=== PATIENT | female | born 1965 | race Caucasian/White ===

== ENCOUNTER 2018-01-20 08:01 | Emergency (ER) | payer BC ==
--- OUTSIDE RECORDS SUMMARY | 2018-01-20 08:06 | XMS REPORT ---
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 Active Onset: 09/19/2017 Localized, primary osteoarthritis of the Cathy Hall M.D. 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 ETOH Use Currently consumes alcohol <1 drink/week Smoking Patient has never smoked Daily Caffeine Consumes on average 2 cups of regular coffee per day Exercise Type/Frequency Exercises sporadically Allergies, Adverse Reactions, Alerts Date Description Reaction Status Severity Comments 06/29/2014 Penicillin active passed out 06/29/2014 Naprosyn active rash 06/29/2014 Morphine active nausea Medications Medication Date Status Form Strength Qnty SIG Indications Ordering Provider Celecoxib 01/16 Active Capsules 200mg 30cap 1 by mouth M16.11 Owen s every day NI Silveira Tramadol HCL 01/16 Active Tablets 50mg 28tab 1-2 tablets M16.11 Owen /2017 s every 12 NI Silveira hours as needed for pain. Baclofen 05/12 Active Tablets 10mg 30tab take 1/2 M54.5 Owen /2017 s tab every 8 NI Silveira hours as needed for muscle spasm Diazepam 02/20 Active Tablets 5mg 30tab 1 tablet Owen /2015 s once daily NI Silveira as needed Ibuprofen 05/02 Active Tablets 600mg 60tab take one J06.9 Owen s tablet by NI Silveira mouth three times a day as needed with food Cyclobenzaprine 11/02 Active Tablets 5mg 30tab take 03/11-1 Owen HCL /2014 s tablet NI Silveira daily as needed Motorized 09/07 Active 1unit Pride G11.4 Owen Scooter /2014 s Ivon 3 NI Silveira wheeled scooter or current equivalent Compression 09/01 Active Misc 15-20MMHG 2Pair To be worn R60.0 Owen Stockings /2014 while awake NI Silveira Wrist 08/17 Active Misc 1unit To be worn Owen Splint/Cock-Up/L /2014 s at night NI Silveira eft/Canvas/Mediu for carpal m tunnel B Complete Active Tablets once daily Unknown /0000 Calcium-Magnesiu Active Tablets One daily Unknown m-Zinc / Vitamin D-1000 Active Tablets 1000Unit one daily Unknown Maximum Strength /0000 Biotin Active Tablets 300mcg 1 tablet Unknown /0000 every other day Vitamin E-200 Active Capsules 200Unit 1 by mouth Unknown /0000 every day Mometasone 09/25 Hx Suspension 50mcg/Act 17uni spray 2 R09.81 Owen Furoate ts sprays into NI Silveira - each 09/03 nostril two times daily Ciprodex 09/25 Hx Suspension 0.3-0.1% 7.500 instill 4 H92.02 Owen /2016 ml drops into NI Silveira - affected 05/11 ear twice daily for 7 days Nitrofurantoin 02/20 Hx Capsules 100mg 14cap take one M54.5 Owen Macrocrystal s capsule Raoul, SYSTEM DEVELOPMENT MANAGER - twice daily 02/27 for 7 days. Ondansetron 05/02 Hx Tablets 4mg 20tab dissolve J06.9 Owen Dispers s one tablet Raoul, SYSTEM DEVELOPMENT MANAGER - orally every hours as needed for nausea. Tamiflu 05/02 Hx Capsules 75mg 10cap take one J06.9 Owen s capsule Raoul, SYSTEM DEVELOPMENT MANAGER - twice daily for 5 days. Vital Signs Date Vital Result Comment 01/16/2018 Height 63 inches 5'3" Weight 265.00 lb Heart Rate 90 /min BP Systolic 141 mmHg BP Diastolic 92 mmHg O2 % BldC Oximetry 98 % BMI (Body Mass Index) 46.9 kg/m2 09/19/2017 Height 63 inches 5'3" Weight 269.00 lb Heart Rate 100 /min BP Systolic 160 mmHg BP Diastolic 100 mmHg BMI (Body Mass Index) 47.6 kg/m2 09/12/2017 Height 63 inches 5'3" Weight 265.00 lb Heart Rate 72 /min BP Systolic 178 mmHg BP Diastolic 98 mmHg Respiratory Rate 12 /min Body Temperature 98.6 F Pain Level 7 BMI (Body Mass Index) 46.9 kg/m2 09/04/2017 Height 63 inches 5'3" Weight 265.75 lb Heart Rate 88 /min BP Systolic 180 mmHg BP Diastolic 120 mmHg Respiratory Rate 20 /min Body Temperature 98.4 F BMI (Body Mass Index) 47.1 kg/m2 05/12/2017 Weight 263.50 lb Heart Rate 93 /min BP Systolic Sitting 160 mmHg BP Diastolic Sitting 100 mmHg BP Systolic Recheck 142 mmHg BP Diastolic Recheck 88 mmHg O2 % BldC Oximetry 96 % 09/25/2016 Weight 264.25 lb Heart Rate 94 /min BP Systolic 138 mmHg BP Diastolic 86 mmHg Body Temperature 98.1 F O2 % BldC Oximetry 97 % 02/21/2016 Weight 267.00 lb with shoes Heart Rate 91 /min BP Systolic Sitting 144 mmHg BP Diastolic Sitting 88 mmHg Body Temperature 96.3 F O2 % BldC Oximetry 99 % 06/07/2015 BP Systolic Recheck 144 mmHg BP Diastolic Recheck 86 mmHg 06/07/2015 Weight 264.00 lb Heart Rate 79 /min BP Systolic Sitting 174 mmHg BP Diastolic Sitting 95 mmHg Body Temperature 96.8 F Pain Level 3 O2 % BldC Oximetry 98 % 05/02/2015 Weight 259.00 lb Heart Rate 100 /min BP Systolic Sitting 126 mmHg BP Diastolic Sitting 82 mmHg Respiratory Rate 14 /min Body Temperature 100.0 F O2 % BldC Oximetry 99 % 01/31/2015 Weight 271.00 lb Heart Rate 86 /min BP Systolic Sitting 126 mmHg BP Diastolic Sitting 84 mmHg Respiratory Rate 14 /min Body Temperature 98.6 F O2 % BldC Oximetry 87 % 10/31/2014 Weight 263.50 lb Heart Rate 91 /min BP Systolic Sitting 157 mmHg BP Diastolic Sitting 96 mmHg BP Systolic Recheck 152 mmHg BP Diastolic Recheck 88 mmHg 09/01/2014 Weight 262.00 lb Heart Rate 84 /min BP Systolic Sitting 146 mmHg BP Diastolic Sitting 89 mmHg Body Temperature 96.9 F 06/29/2014 Height 63 inches 5'3" Weight 265.00 lb Heart Rate 95 /min BP Systolic Sitting 127 mmHg BP Diastolic Sitting 84 mmHg O2 % BldC Oximetry 98 % BMI (Body Mass Index) 46.9 kg/m2 Results Test Date Test Result H/L Range Note Lipid Profile (Trig/Chol/HDL) 05/13/2017 Triglycerides 141 mg/dL 1 Cholesterol 205 mg/dL 2 HDL Cholesterol 48.0 mg/dL 3 LDL Cholesterol 129 mg/dL 4 Comp Metabolic Panel 05/13/2017 Sodium 136 mmol/L 133-145 Potassium 4.1 mmol/L 3.5-5.0 Chloride 101 mmol/L 101-111 Co2 Carbon Dioxide 29 mmol/L 22-32 Anion Gap 6 mmol/L 2-11 Glucose 97 mg/dL 70-100 Blood Urea Nitrogen 14 mg/dL 6-24 Creatinine 0.90 mg/dL 0.51-0.95 BUN/Creatinine Ratio 15.6 8-20 Calcium 9.6 mg/dL 8.6-10.3 Total Protein 7.0 g/dL 6.4-8.9 Albumin 4.2 g/dL 3.2-5.2 Globulin 2.8 g/dL 2-4 Albumin/Globulin Ratio 1.5 1-3 Total Bilirubin 0.60 mg/dL 0.2-1.0 Alkaline Phosphatase 100 U/L 34-104 Alt 16 U/L 7-52 Ast 13 U/L 13-39 Egfr Non- 66.3 >60 Egfr 85.2 >60 5 Laboratory test finding 05/13/2017 TSH (Thyroid Stim Horm) 2.67 mcIU/mL 0.34-5.60 6 Vitamin B12 279 pg/mL 180-914 7 CBC Auto Diff 05/13/2017 White Blood Count 5.3 10^3/uL 3.5-10.8 Red Blood Count 5.37 10^6/uL 4.0-5.4 Hemoglobin 14.4 g/dL 12.0-16.0 Hematocrit 43 % 35-47 Mean Corpuscular Volume 80 fL 80-97 Mean Corpuscular Hemoglobin 27 pg 27-31 Mean Corpuscular HGB Conc 34 g/dL 31-36 Red Cell Distribution Width 14 % 10.5-15 Platelet Count 247 10^3/uL 150-450 Mean Platelet Volume 8 um3 7.4-10.4 Abs Neutrophils 3.6 10^3/uL 1.5-7.7 Abs Lymphocytes 1.1 10^3/uL 1.0-4.8 Abs Monocytes 0.4 10^3/uL 0-0.8 Abs Eosinophils 0.1 10^3/uL 0-0.6 Abs Basophils 0 10^3/uL 0-0.2 Abs Nucleated RBC 0 10^3/uL Granulocyte % 68.3 % 38-83 Lymphocyte % 21.7 % Low 25-47 Monocyte % 7.2 % High 0-7 Eosinophil % 2.3 % 0-6 Basophil % 0.5 % 0-2 Nucleated Red Blood Cells % 0 Laboratory test finding 05/13/2017 Vitamin D Total 25(Oh) 22.4 ng/mL 20- 50 8 Ua Routine 02/21/2016 Ua Specific [place] 1.000 Ua PH 5 Ua Color Pale yellow Ua Appera cloudy Ua WBC small Ua Protein neg Ua Glucose neg Ua Ketones neg Ua Bilirubin neg Ua Urobilinogen neg Ua Nitrite neg Ua Occult Blood neg Urine Culture And 02/21/2016 Urine Culture SEE RESULT BELOW 9, 10 Sensitivities Ua Routine 06/07/2015 Ua Specific [place] 1.015 Ua PH 5 Ua Color dark yellow Ua Appera clear Ua WBC negative Ua Protein negative Ua Glucose negative Ua Ketones negative Ua Bilirubin negative Ua Urobilinogen negative Ua Nitrite negative Ua Occult Blood negative Laboratory test 05/02/2015 Influenza A & B SEE RESULT BELOW 11 finding Request Rapid Influenza A & B 05/02/2015 Influenza A NEGATIVE Negative 12 Molecular Molecular Influenza B Molecular NEGATIVE Negative Laboratory test finding 08/17/2014 Lyme Disease Serology Negative Negative 13 CBC Auto Diff 08/17/2014 White Blood Count 7.5 10^3/uL 4.8-10.8 Red Blood Count 5.10 10^6/uL 4.0-5.4 Hemoglobin 13.5 g/dL 12.0-16.0 Hematocrit 42 % 35-47 Mean Corpuscular Volume 81 fL 80-97 Mean Corpuscular Hemoglobin 27 pg 27-31 Mean Corpuscular HGB Conc 33 g/dL 31-36 Red Cell Distribution Width 15 % 10.5-15 Platelet Count 290 10^3/uL 150-450 Mean Platelet Volume 8 um3 7.4-10.4 Abs Neutrophils 5.8 10^3/uL 1.5-7.7 Abs Lymphocytes 1.2 10^3/uL 1.0-4.8 Abs Monocytes 0.4 10^3/uL 0-0.8 Abs Eosinophils 0.1 10^3/uL 0-0.6 Abs Basophils 0 10^3/uL 0-0.2 Abs Nucleated RBC 0 10^3/uL Granulocyte % 76.9 % 38-83 Lymphocyte % 15.3 % Low 25-47 Monocyte % 5.8 % 1-9 Eosinophil % 1.6 % 0-6 Basophil % 0.4 % 0-2 Nucleated Red Blood Cells % 0 Laboratory test finding 08/17/2014 TSH (Thyroid Stim Horm) 2.18 ?IU/mL 0.34-5.60 Comp Metabolic Panel 08/17/2014 Sodium 134 mmol/L 133-145 Potassium 4.3 mmol/L 3.5-5.0 Chloride 101 mmol/L 101-111 Co2 Carbon Dioxide 28 mmol/L 22-32 Anion Gap 5 mmol/L 2-11 Glucose 87 mg/dL 70-100 Blood Urea Nitrogen 13 mg/dL 6-24 Creatinine 0.89 mg/dL 0.51-0.95 BUN/Creatinine Ratio 14.6 8-20 Calcium 9.0 mg/dL 8.6-10.3 Total Protein 6.5 g/dL 6.4-8.9 Albumin 3.9 g/dL 3.2-5.2 Globulin 2.6 g/dL 2-4 Albumin/Globulin Ratio 1.5 1-3 Total Bilirubin 0.40 mg/dL 0.2-1.0 Alkaline Phosphatase 90 U/L 34-104 Alt 11 U/L 7-52 Ast 12 U/L Low 13-39 Egfr Non- 67.7 >60 Egfr 87.1 >60 14 Laboratory test finding 08/17/2014 Erythrocyte Sed Rate 17 mm/Hr High 0- 14 C Reactive Protein 20.46 mg/L High < 5.00 15 Laboratory test finding 08/17/2014 Vitamin B12 328 pg/mL 180-914 16 Laboratory test finding 06/30/2014 Erythrocyte Sed Rate 18 mm/Hr High 0- 14 Lyme Disease Serology Negative Negative 17 CBC Auto Diff 06/30/2014 White Blood Count 6.9 10^3/uL 4.8-10.8 Red Blood Count 5.10 10^6/uL 4.0-5.4 Hemoglobin 13.9 g/dL 12.0-16.0 Hematocrit 41 % 35-47 Mean Corpuscular Volume 80 fL 80-97 Mean Corpuscular Hemoglobin 27 pg 27-31 Mean Corpuscular HGB Conc 34 g/dL 31-36 Red Cell Distribution Width 15 % 10.5-15 Platelet Count 245 10^3/uL 150-450 Mean Platelet Volume 8 um3 7.4-10.4 Abs Neutrophils 5.4 10^3/uL 1.5-7.7 Abs Lymphocytes 1.1 10^3/uL 1.0-4.8 Abs Monocytes 0.3 10^3/uL 0-0.8 Abs Eosinophils 0.1 10^3/uL 0-0.6 Abs Basophils 0 10^3/uL 0-0.2 Abs Nucleated RBC 0.01 10^3/uL Granulocyte % 78.3 % 38-83 Lymphocyte % 15.8 % Low 25-47 Monocyte % 4.6 % 1-9 Eosinophil % 0.8 % 0-6 Basophil % 0.5 % 0-2 Nucleated Red Blood Cells % 0.1 Laboratory test finding 06/30/2014 TSH (Thyroid Stimulating 1.49 IU/mL 0.34-5.60 Horm) C Reactive Protein 17.34 mg/L High < 5.00 18 Comp Metabolic Panel 06/30/2014 Sodium 137 mmol/L 133-145 Potassium 4.1 mmol/L 3.5-5.0 Chloride 104 mmol/L 101-111 Co2 Carbon Dioxide 27 mmol/L 22-32 Anion Gap 6 mmol/L 2-11 Glucose 112 mg/dL High 70-100 Blood Urea Nitrogen 10 mg/dL 6-24 Creatinine 0.79 mg/dL 0.51-0.95 BUN/Creatinine Ratio 12.7 8-20 Calcium 9.1 mg/dL 8.6-10.3 Total Protein 6.6 g/dL 6.4-8.9 Albumin 4.1 g/dL 3.2-5.2 Globulin 2.5 g/dL 2-4 Albumin/Globulin Ratio 1.6 1-3 Total Bilirubin 0.50 mg/dL 0.2-1.0 Alkaline Phosphatase 83 U/L 34-104 Alt 12 U/L 7-52 Ast 12 U/L Low 13-39 Egfr Non- 78.0 >60 Egfr 100.3 >60 19 Laboratory test finding 06/30/2014 Vitamin B12 336 pg/mL 180-914 20 Urinalysis Profile 06/29/2014 Urine Color Yellow Urine Appearance Cloudy Urine Specific [place] 1.023 1.010-1.030 Urine pH 7.0 5-9 Urine Urobilinogen Negative Negative Urine Ketones Negative Negative Urine Protein Negative Negative Urine Leukocytes Negative Negative Urine Blood Negative Negative Urine Nitrite Negative Negative Urine Bilirubin Negative Negative Urine Glucose Negative Negative Urine Culture And Sensitivities 06/29/2014 Urine Culture (SEE NOTE) 21 Ua Routine 06/29/2014 Ua Specific [place] 1.010 Ua PH 7.0 Ua Color doroteo Ua Appera cloudy Ua WBC trace Ua Protein neg Ua Glucose neg Ua Ketones trace Ua Bilirubin small Ua Urobilinogen normal Ua Nitrite neg Ua Occult Blood neg 1 Desirable: <150 Borderline High: 150-199 High: 200-499 Very High: >500 2 Desirable: <200 Borderline High: 200-239 High: >239 3 Low: <40 Desirable: 40-60 High: >60 4 Desirable: <100 Near Optimal: 100-129 Borderline High: 130-159 High: 160-189 Very High: >189 5 Because ethnic data is not always readily available, this report includes an eGFR for both -Americans and non- Americans. The National Kidney Disease Education Program (NKDEP) does not endorse the use of the MDRD equation for patients that are not between the ages of 18 and 70, are , have extremes of body size, muscle mass, or nutritional status, or are non- or non-. According to the National Kidney Foundation, irrespective of diagnosis, the stage of the disease is based on the level of kidney function: Stage Description GFR(mL/min/1.73 m(2)) 1 Kidney damage with normal or decreased GFR 90 2 Kidney damage with mild decrease in GFR 60-89 3 Moderate decrease in GFR 30-59 4 Severe decrease in GFR 15-29 5 Kidney failure <15 (or dialysis) 6 FASTING 10 HOUR 7 Normal Range 180 to 914 Indeterminate Range 145 to 180 Deficient Range <145 8 FASTING 10 HOUR 9 [id number] 10 SEE RESULT BELOW Name: ANGELIQUE CALLAHANCHRIS : [address]: Owen Silveira NP Acct: [id number] Unit: [id number] AGE: 50 Location: [facility] Re02/21/16 SEX: F Status: REG REF SPEC: [id number] SELAM: 02/21/16-[address] [facility] [address]: Owen Silveira NP REQ: [id number] RECD: 02/21/16 STATUS: COMP _ SOURCE: URINE SPDESC: ORDERED: Urine Culture COMMENTS: [id number] Urine Source: Random Procedure Result Reported Site Urine Culture Final 02/22/16- 1630 ML No growth of clinically significant organisms * ML - MAIN LAB ([facility]) . END OF REPORT * ML=Testing performed at Main Lab DEPARTMENT OF PATHOLOGY, [address] [place] [address] Blayne Tyson M.D. Director [facility] # [id number] 11 SEE RESULT BELOW Name: ANGELIQUE CALLAHANCHRIS : [address]: Owen Silveira NP Acct: [id number] Unit: [id number] AGE: 49 Location: [facility] Re05/02/15 SEX: F Status: REG REF SPEC: [id number] SLEAM: 05/02/15-[address]: Owen Silveira NP REQ: [id number] RECD: 05/02/152 STATUS: COMP _ SOURCE: [facility]: ORDERED: Flu A B Request Procedure Result Reported Site Rapid Influenza A B Request Final 05/02/15- 8690 ML Specimen received for Influenza A/B Molecular testing * ML - MAIN LAB ([facility]) . END OF REPORT * ML=Testing performed at Main Lab DEPARTMENT OF PATHOLOGY, [address] [place] [address] Blayne Tyson M.D. Director [facility] # [id number] 12 Experimental Aircraft Mechanic: [id number] MARIA R LEBRON 13 Serologic response to B. burgdorferi infection is not detected, but cannot rule out early infection during which low or undetectable antibody levels to B. burgdorferi may be present. If clinically indicated, a new serum specimen should be submitted in 7-14 days. Test Performed by: [place] [address] Pin Drafting Machine Operator: Arcadio Cooley II, M.D., Ph.D. 14 Because ethnic data is not always readily available, this report includes an eGFR for both -Americans and non- Americans. The National Kidney Disease Education Program (NKDEP) does not endorse the use of the MDRD equation for patients that are not between the ages of 18 and 70, are , have extremes of body size, muscle mass, or nutritional status, or are non- or non-. According to the National Kidney Foundation, irrespective of diagnosis, the stage of the disease is based on the level of kidney function: Stage Description GFR(mL/min/1.73 m(2)) 1 Kidney damage with normal or decreased GFR 90 2 Kidney damage with mild decrease in GFR 60-89 3 Moderate decrease in GFR 30-59 4 Severe decrease in GFR 15-29 5 Kidney failure <15 (or dialysis) 15 Acute inflammation: >10.00 16 Normal Range 180 to 914 Indeterminate Range 145 to 180 Deficient Range <145 17 Serologic response to B. burgdorferi infection is not detected, but cannot rule out early infection during which low or undetectable antibody levels to B. burgdorferi may be present. If clinically indicated, a new serum specimen should be submitted in 7-14 days. Test Performed by: [place] [address] Pin Drafting Machine Operator: Arcadio Cooley II, M.D., Ph.D. 18 Acute inflammation: >10.00 19 Because ethnic data is not always readily available, this report includes an eGFR for both -Americans and non- Americans. The National Kidney Disease Education Program (NKDEP) does not endorse the use of the MDRD equation for patients that are not between the ages of 18 and 70, are , have extremes of body size, muscle mass, or nutritional status, or are non- or non-. According to the National Kidney Foundation, irrespective of diagnosis, the stage of the disease is based on the level of kidney function: Stage Description GFR(mL/min/1.73 m(2)) 1 Kidney damage with normal or decreased GFR 90 2 Kidney damage with mild decrease in GFR 60-89 3 Moderate decrease in GFR 30-59 4 Severe decrease in GFR 15-29 5 Kidney failure <15 (or dialysis) 20 Normal Range 180 to 914 Indeterminate Range 145 to 180 Deficient Range <145 21 RUN DATE: 07/02/14 [facility] LAB LIVE PAGE 1 RUN TIME: [address] [place] [address] Specimen Inquiry Name: CHRIS MARCH : [address]: Owen Silveira NP Acct: [id number] Unit: [id number] AGE: 48 Location: [facility] Re06/29/14 SEX: F Status: REG REF SPEC: [id number] SELAM: 06/29/14-[address]: Owen Silveira NP REQ: [id number] RECD: 06/30/141103 STATUS: COMP _ SOURCE: URINE SPDESC: ORDERED: Urine Culture COMMENTS: QUERIES: Provider Requisition # [id number] Procedure Result Verified Site Urine Culture Final 07/02/14- 1153 ML Organism 1 NORMAL CLAIR [place] Count 1-10,000 (Few) CFU/ML * ML - MAIN LAB ([facility]) . END OF REPORT * ML=Testing performed at Main Lab DEPARTMENT OF PATHOLOGY, [address] [place] [address] Blayne Tyson M.D. Director [facility] # [id number] Procedures Date CPT Code Description Status 05/19/2017 Mammogram Completed 06/29/2014 33021 EKG Tracing & Interpretation Completed 02/09/2013 Mammogram Completed 04/07/2009 Mammogram Completed Encounters Type Date Location Provider CPT E/M Dx Office Visit 09/19/2017 [facility] Cathy Hall M.D. 96592 M25.551 9:00a Of [facility] M16.11 E66.01 Z68.42 Office Visit 09/12/2017 9:30a [facility] [place] [address] M19.022 C.[facility] Office Visit 09/04/2017 4:00p [facility] [place] [address] R60.0 - [place] M25.551 M25.522 Office Visit 05/12/2017 2:20p [facility] Internal [facility] [place] [address] M54.5 [place] M54.9 M25.559 Z13.220 Z13.1 R53.83 Z12.31 Office Visit 09/25/2016 1:20p [facility] [place] [address] H92.02 [place] R09.81 H60.8x2 Office Visit 02/21/2016 2:00p [facility] [place] [address] M54.5 [place] Office Visit 06/07/2015 1:00p [facility] [place] [address] M79.652 [place] M54.5 G11.4 Office Visit 05/02/2015 11:20a [facility] [place] [address] J06.9 [place] Office Visit 01/31/2015 1:40p [facility] [place] [address] G11.4 [place] I10 Office Visit 10/31/2014 1:00p [facility] [place] [address] 334.1 [place] 782.3 401.1 Office Visit 09/01/2014 3:00p [facility] [place] [address] 782.3 [place] 719.40 238.2 334.1 709.9 Office Visit 06/29/2014 2:00p [facility] [place] [address] 782.0 [place] 782.3 786.50 726.32 Plan of Care 01/16/2018 - Owen Silveira NPM16.11 Unilateral primary osteoarthritis, right hipNew Medication:Celecoxib 200 mgTramadol HCL 50 mgComments:I have prescribed the Celebrex as we discussed. Do not take this with the ibuprofen.You can continuetao take the cyclobenzaprine or diazepam as needed.You can use the tramadol as needed for increased pain.Referral:Constantino Lake MD, Surgery, Orthopedic
[2018-01-20 08:20] VITALS: BP 175/99
--- NOTE | 2018-01-20 08:46 | UC ---
Laceration HPI - HPI Summary HPI Summary: 52 yo finger R 3rd finger s/p closed in van door this morning approx 7:30am. + dysesthetic. No anesthetic. Able to move finger, not from. Finger swollen. Takes daily celebrex, most recently yesterday, will take it again today after breakfast. Last tet unk Generally good health, but does have hip problems, takes celebrex daily. Pt is Left handed - History Of Current Complaint Chief Complaint: UCLaceration Stated Complaint: FINGER INJURY Time Seen by Provider: 01/20/18 08:31 Hx Obtained From: Patient Pain Intensity: 4 - Allergies/Home Medications Allergies/Adverse Reactions: Allergies Allergy/AdvReac Type Severity Reaction Status Date / Time Penicillins Allergy See Comment Verified 01/20/18 08:08 morphine AdvReac Nausea And Verified 01/20/18 08:08 Vomiting Home Medications: Home Medications Celecoxib [Celebrex 50 MG CAP] 50 mg PO DAILY 01/20/18 [History Confirmed ] Cyclobenzaprine TAB* [Flexeril 10 MG TAB*] 10 mg PO BEDTIME PRN 01/20/18 [ History Confirmed 01/20/18] Diazepam TAB(*) [Valium TAB(*)] 5 mg PO DAILY 01/20/18 [History Confirmed ] traMADol TAB* [Ultram*] 50 mg PO BEDTIME PRN 01/20/18 [History Confirmed ] PMH/Surg Hx/FS Hx/Imm Hx Previously Healthy: Yes - see hpi - Surgical History Surgical History: Yes Surgery Procedure, Year, and Place: lumpectomy R breast - Social History Alcohol Use: Rare Substance Use Type: None Smoking Status (MU): Never Smoked Tobacco Review of Systems All Other Systems Reviewed And Are Negative: Yes Constitutional: Positive: Negative Skin: Positive: Other - see hpi Eyes: Positive: Negative ENT: Positive: Negative Respiratory: Positive: Negative Cardiovascular: Positive: Negative Gastrointestinal: Positive: Negative Genitourinary: Positive: Negative Motor: Positive: Other - see hpi Neurovascular: Positive: Other - see hpi Musculoskeletal: Positive: Arthralgia, Other: - see hpi Neurological: Positive: Other - see hpi Psychological: Positive: Negative Is Patient Immunocompromised?: No Physical Exam Triage Information Reviewed: Yes Appearance: Well-Appearing, Well-Nourished Vital Signs: Initial Vital Signs Temp 97.1 F 01/20/18 08:11 Pulse 83 01/20/18 08:11 Resp 18 01/20/18 08:11 BP 175/99 01/20/18 08:11 Pulse Ox 98 01/20/18 08:11 Vital Signs Reviewed: Yes Eye Exam: Normal ENT Exam: Normal Neck exam: Normal Respiratory Exam: Normal - no tachypnea, no dyspnea. RR normal. Cardiovascular Exam: Normal - heart rate normal. Nondiaphoretic. See "skin" re finger specific Abdominal Exam: Normal - no c/o Musculoskeletal Exam: Other Neurological Exam: Normal - grossly nonfocal Psychological Exam: Normal - conversing easily and appropriately Skin Exam: Other - Nondiaphoretic. R 3rd finger + swelling. Tender DIP. There are 2 avulsion lacs - dorsal dip approx 1cm L x approx 3mm W. More lateral / volar direction avulsion lac approx 1/2 cm x 2mm L/W. Full thickness , without active bleeding. + necrotic margins to both lacs, with dusky prox skin discoloration. No active infection appreciated. Distal sens present to LT , albeit somewhat dysesthetic. . CR distal to lac ok. Able to bend finger but limited d/t pain / swelling. Laceration Course/Dx - Course/Dx Course Of Treatment: Wound cleansed by RN. Boostrix administered by RN. Wound repaired via skin adhesive. Reviewed with pt that the tissue oxygen levels are compromised at the end of the avulsion lacs. May develop eschar, and likely need 2ndary intention healing. Reviewed wound care instructions. Xray finger reviewed. Reviewed coa / tx plan. Questions as posed answered to the best of my ability. Splint for comfort. - Differential Dx - Laceration/Wound Provider Diagnoses: Avulsion lac(s) R 3rd finger. Crush injury. High blood pressure Discharge - Sign-Out/Discharge Documenting (check all that apply): Patient Departure All imaging exams completed and their final reports reviewed: Yes - Discharge Plan Condition: Stable Disposition: HOME Patient Education Materials: Diphtheria/Acellular Pertussis/Tetanus Booster Vaccine (By injection), Finger Laceration (ED), Hypertension (ED), Skin Adhesive Care (ED), Crush Injury (ED) Referrals: Tamara Corley MD [Primary Care Provider] - Additional Instructions: Splint for 3 days, and as needed for comfort. Follow up for wound recheck - here or with primary care physician in approx 3 days. Seek medical attention for worse or new problems. Please remove remaining rings on Right hand until your finger is not swollen and doesn't hurt. Avoid astringents (no hydrogen peroxide, rubbing alcohol, strong soaps), ok to shower with mild white soap, avoid scrub, recommend hold off getting wet for at least 3 days. Adhesive should come off in about 7 days. Avoid antibiotic ointment until glue comes off (it will denature the glue). Afterwards, ok to use antibiotic ointment - but have care to avoid ointment containing "neomycin." Elevate as possible. Please follow up with your primary care physician within 2 weeks for blood pressure check. - Billing Disposition and Condition Condition: STABLE Disposition: Home
[2018-01-20] MEDS ORDERED: Tetan/Diph/Pertus SYR(Tdap)* 0.5 ML SYR(BOOSTRIX) use SYR IM ONE (08:52)
== END 2018-01-20 10:13 | disposition home or self-care (01) ==
LOC: UCEAST 08:01
DX: S61.212A Laceration without foreign body of right middle finger without damage to nail, initial encounter (principal); V48.4XXA Person boarding or alighting a car injured in noncollision transport accident, initial encounter; Y92.9 Unspecified place or not applicable; I10 Essential (primary) hypertension
CPT/HCPCS: 12001; 73140; 90471; 90715; 99212; G0463